=== PATIENT | male | born 1950 | race Caucasian/White ===

== ENCOUNTER 2022-07-23 06:52 | Day surgery (SDC) | payer MEDICARE, OTHER ==
[~2022-07-23] VITALS: Ht 182.9 cm; Wt 112.5 kg
[2022-07-23 07:21] VITALS: BP 122/85; PULSE 90; TEMP 97.6
[2022-07-23] MEDS ORDERED: ZYLOPRIM 100MG100 MG PO (07:24)
[2022-07-23] MEDS ORDERED: PRAVACHOL 20MG20 MG PO (07:24)
[2022-07-23] MEDS ORDERED: MICARDIS80 MG PO (07:24)
[2022-07-23] MEDS ORDERED: PROBIOTIC PO (07:25)
[2022-07-23] MEDS ORDERED: MICROZIDE12.5 MG PO (07:25)
[2022-07-23] MEDS ORDERED: PRIL40 PO (07:25)
[2022-07-23] MEDS ORDERED: BENADRYL25 M2 PO (07:26)
[2022-07-23] MEDS ORDERED: EPA FISH OIL1 SGL PO (07:26)
[2022-07-23 08:40] VITALS: BP 128/78; PULSE 85; TEMP 96.9
--- NOTE | 2022-07-23 08:40 | NUR ---
Patient arrives to [facility] via cart, accompanied by [facility] RN. He is alert and oriented. He ambulates with steady gait to the chair in his room. Monitoring is applied -VSS on room air. His spouse is at the bedside. PIV to TKO. He denies pain or nausea. He is offered something to eat/drink. He requests and receives coffee and toast. Call light is within reach.
[2022-07-23 08:55] VITALS: BP 125/82; PULSE 82
[2022-07-23 09:10] VITALS: BP 118/79; PULSE 84
--- NOTE | 2022-07-23 09:27 | NUR ---
0916 Dr. Bardales comes to the bedside and talks with the patient. 0927 The patient has met discharge criteria. He is tolerating PO well. He denies pain or nausea. VSS on room air. Discharge instructions are discussed. He denies any questions and verbalizes understanding. PIV is removed with catheter intact and hemostasis achieved. The Patient changes to his clothing independently. He is escorted to the exit via wheelchair by staff. He is discharged to the care of his spouse, who drives him home in a private vehicle at 0927.
== END 2022-07-23 09:27 | disposition home or self-care (01) ==
LOC: SDCO 06:52
DX: Z12.11 Encounter for screening for malignant neoplasm of colon (principal); K57.30 Diverticulosis of large intestine without perforation or abscess without bleeding; K63.89 Other specified diseases of intestine; Z86.010 Personal history of colon polyps; Z87.891 Personal history of nicotine dependence
CPT/HCPCS: J7030